=== PATIENT | male | born 2000 | race Caucasian/White ===

== ENCOUNTER → 2019-02-06 | Outpatient (CLI) | payer BC ==
[2019-02-06 09:09] LABS: BASO % 0.6 % (0.0-2.0); EOS # 0.2 (0.0-0.7); EOS % 3.2 % (0-4.0); GRAN # 3.2 (1.4-6.5); GRAN % 51.5 % (42.2-75.2); HEMATOCRIT 44.8 % (36.0-47.0); HEMOGLOBIN 15.2 g/dl (12.5-16.1); LYMPH # 2.2 (1.2-3.4); LYMPH % 35.1 % (20.0-51.0); MEAN CELL VOLUME 89 fl (80.0-95.0); MEAN CORPUSCULAR HEMOGLOBIN 30 pg (26.0-32.0); MEAN CORPUSCULAR HGB CONC 34 g/dl (33.0-37.0); MEAN PLATELET VOLUME 10.3 fl (7.4-10.4); MONO # 0.6 (0.1-0.6); MONO % 9.4 % (1.7-9.3); PLATELET COUNT 209 K/mm3 (130-400); RED BLOOD COUNT 5.04 M/mm3 (4.20-5.60); REDCELL DISTRIBUTION WIDTH-CV 12.6 % (11.5-14.5)
[2019-02-06 09:15] LABS: ALANINE AMINOTRANSFERASE 25 U/L (21-72); ALBUMIN 4.9 gm/dL (3.5-5.0); ALKALINE PHOSPHATASE 73 U/L (50-136); ANION GAP 8 mmol/L (7-16); AST,SGOT 27 U/L (15-37); BILIRUBIN,TOTAL 0.8 mg/dL (0.0-1.0); BLOOD UREA NITROGEN 14 mg/dL (9-20); CALCIUM 9.8 mg/dL (8.4-10.2); CARBON DIOXIDE 30 mmol/L (22-30); CHLORIDE 104 mmol/L (98-107); GLUCOSE 88 mg/dL (74-106); POTASSIUM 4.4 mmol/L (3.4-5.0); SODIUM 142 mmol/L (137-145); TOTAL PROTEIN 7.8 gm/dL (6.4-8.2)
[2019-02-06 09:17] LABS: C-REACTIVE PROTEIN < 0.5 mg/dL (0.0-0.9)
[2019-02-06 09:43] LABS: ERYTHROCYTE SEDIMENTATION RATE 1 mm/hr (0-15)
== END ==
LOC: COL.LAB 08:38
DX: F41.9 Anxiety disorder, unspecified (principal)

== ENCOUNTER → 2019-02-19 | Outpatient (CLI) | payer BC | LOC: COL.CARD 08:00 | DX: F41.9 Anxiety disorder, unspecified (principal) ==